=== PATIENT | male | born 1980 | race Caucasian/White ===

== ENCOUNTER 2017-04-24 13:14 | Emergency (ER) | payer OTHER ==
[2017-04-24] MEDS ORDERED: ACETAMINOPHEN TAB 325 MG TAB PO STA (13:50)
[2017-04-24] MEDS ORDERED: ONDANSETRON ODT 4 MG TAB PO STA (13:50)
--- NOTE | 2017-04-24 13:53 | ED ---
Head Injury HPI - General Chief complaint: Head Injury Stated complaint: [facility] head injury Time Seen by Provider: 04/24/17 13:38 Source: patient, RN notes reviewed Mode of arrival: ambulatory Limitations: no limitations - History of Present Illness Initial comments: Patient is a 36-year-old male presents to the emergency room for evaluation of head injury. Patient states about an hour ago he was at work and a piece of ceiling plaster fell on top of his head. Patient denies loss of consciousness. Patient does state he is having a 7 out of 10 headache with neck pain. Patient states he began to feel dizzy and nauseous. Patient states he has a history of severe concussion and thought he should be evaluated. Patient denies paresthesias. Patient denies changes in vision. Patient denies ear pain or ringing in the ears. Patient denies any other injuries during incident. Patient denies taking any blood thinners. Place: work - Related Data Home Medications Medication Instructions Recorded Confirmed Albuterol Sulfate [Proventil Hfa] 2 puff INHALATION RT-Q6H PRN 06/17/16 04/24/17 Ibuprofen [Motrin] 800 mg PO Q6HR PRN 06/17/16 04/24/17 Fluticasone Propionate [Flovent 1 puff INHALATION RT-DAILY PRN 04/24/17 04/24/17 Hfa] Meloxicam [Mobic] 7.5 mg PO DAILY PRN 04/24/17 04/24/17 Omeprazole [PriLOSEC] 40 mg PO HS 04/24/17 04/24/17 Allergies/Adverse reactions: Allergies Allergy/AdvReac Type Severity Reaction Status Date / Time No Known Allergies Allergy Verified 04/24/17 14:20 Review of Systems ROS Statement: Those systems with pertinent positive or pertinent negative responses have been documented in the HPI. ROS Other: All systems not noted in ROS Statement are negative. Past Medical History Past Medical History: No Reported History Additional Past Medical History / Comment(s): head injury History of Any Multi-Drug Resistant Organisms: None Reported Past Surgical History: No Surgical Hx Reported Past Psychological History: Anxiety, Depression Smoking Status: Former smoker Past Alcohol Use History: Occasional Past Drug Use History: Marijuana General Exam - General Exam Comments Initial Comments: Sitting on wheelchair, no acute distress. Limitations: no limitations General appearance: alert, in no apparent distress Head exam: Present: normocephalic, other (Small abrasion over top of scalp) Eye exam: Present: normal appearance, PERRL, EOMI Pupils: Present: normal accommodation ENT exam: Present: normal exam, mucous membranes moist, TM's normal bilaterally , normal external ear exam Neck exam: Present: normal inspection, full ROM. Absent: tenderness, lymphadenopathy Respiratory exam: Present: normal lung sounds bilaterally. Absent: respiratory distress Cardiovascular Exam: Present: regular rate, normal rhythm, normal heart sounds Extremities exam: Present: normal inspection Back exam: Present: normal inspection Neurological exam: Present: alert, oriented X3, CN II-XII intact, normal gait Expanded Patient oriented to: Present: person, place, time Speech: Present: fluid speech Cranial nerves: EOM's Intact: Normal, Facial Sensation: Normal Sensory exam: Upper Extremity Light Touch: Normal, Lower Extremity Light Touch: Normal Motor strength exam: RUE: 5, LUE: 5, RLE: 5, LLE: 5 Eye Response: (4) open spontaneously Motor Response: (6) obeys commands Verbal Response: (5) oriented Psychiatric exam: Present: normal affect, normal mood Skin exam: Present: warm, dry, intact, normal color. Absent: rash Course Vital Signs 04/24/17 13:24 Temperature 98.3 F Pulse Rate 57 L Respiratory 15 Rate Blood Pressure 143/92 O2 Sat by Pulse 98 Oximetry Medical Decision Making - Medical Decision Making Patient is a 36-year-old male presents to the emergency room for head injury. Bring/C-spine CT shows no acute intracranial hemorrhages or spine abnormalities. There was an incidental 8 mm thyroid nodule noted. Results discussed with patient. Patient states that he is aware of the thyroid nodule and is following up with his PCP. Patient states he understands everything that was discussed with him. Return parameters discussed. - Radiology Data Radiology results: report reviewed, image reviewed Disposition Clinical Impression: Closed head injury Disposition: HOME SELF-CARE Condition: Good Instructions: Head Injury (ED) Additional Instructions: Take Tylenol or ibuprofen as needed for headache. Please follow up with primary care provider in 1-2 days. If any new symptom arises or symptoms worsen, return to ER as soon as possible. Referrals: Wesley James DO [Primary Care Provider] - 1-2 days Time of Disposition: 15:19
--- NOTE | 2017-04-24 15:14 | CT ---
EXAMINATION TYPE: CT brain cspine wo con DATE OF EXAM: 04/24/2017 COMPARISON: CT brain and cervical spine June 17, 2016 HISTORY: Patient complains of headache, nausea, dizziness, and neck pain after ceiling fell in on his head. CT DLP: 1765 mGycm. Automated Exposure Control for Dose Reduction was Utilized. TECHNIQUE: CT scan of the head and cervical spine are performed without contrast. FINDINGS: There is no acute intracranial hemorrhage, mass effect, or midline shift identified. The ventricles and sulci are within normal limits in size. The globes are intact and the visualized sin uses are clear. The calvarium is intact. Gordillo-white matter differentiation is maintained. Cervical spine is visualized in its entirety from C1 through upper thoracic levels and demonstrates s atisfactory alignment without evidence of acute fracture or dislocation. Prevertebral soft tissue ap pears within normal limits. The C1-C2 articulation is within normal limits on the coronal images. Vertebral body heights and disc space heights are maintained. No large posterior disc herniations are present on axial or sagittal images. There is partial visualization of vesicles lobe/fissure. There is redemonstration of heterogeneous hypodense 8 mm nodule mid to lower pole level right thyroid on ax ial image 87. IMPRESSION: 1. There is no acute fracture or dislocation evident in the cervical spine. Advise nonemergent thyroi d ultrasound follow-up. 2. No acute intracranial hemorrhage, mass effect, or midline shift is seen.
[2017-04-24 15:35] VITALS: BP 132/82; PULSE 59; RESP 18; TEMP 98
== END 2017-04-24 15:30 | disposition home or self-care (01) ==
LOC: EC 13:14
DX: S09.90XA Unspecified injury of head, initial encounter (principal); R51 Headache; M54.2 Cervicalgia; Z87.891 Personal history of nicotine dependence; Z79.899 Other long term (current) drug therapy; W20.8XXA Other cause of strike by thrown, projected or falling object, initial encounter; Y92.69 Other specified industrial and construction area as the place of occurrence of the external cause; Y99.0 Civilian activity done for income or pay
CPT/HCPCS: 70450; 72125; 99283

== ENCOUNTER 2022-06-16 12:21 | Day surgery (SDC) | payer OTHER ==
[2022-06-14 09:23] VITALS: BMI 24.5
[~2022-06-16 12:21] MED LIST: SODIUM CHLORIDE 0.9% 1,000 ML IV SCH
[2022-06-16] MEDS ORDERED: SODIUM CHLORIDE 0.9% 500 ML 500 ML IV ONE (12:56)
[2022-06-16 13:01] VITALS: RESP 16
--- NOTE | 2022-06-16 15:02 | P.EPPROC ---
- EP Procedure Note Electrophysiology Procedure Note: Diagnosis Recurrent presyncope and syncope Twelve-lead EKG Sinus mechanism normal OK narrow QRS Tilt table test for protocol Baseline blood pressure 126/80 mmHg Baseline heart rate 65 beats a minute Patient was tilted upright at an angle of 70 per protocol No change in heart rate and blood pressure He was laid supine at the end of the procedure Impression Normal twelve-lead EKG Normal heart rate and blood pressure response to upright tilting
[2022-06-16 15:07] VITALS: BP 122/72; PULSE 58
== END 2022-06-16 15:07 | disposition home or self-care (01) ==
LOC: CATHEP 12:21
PROVIDERS: ATTEND Internal Medicine Clinical Cardiac Electrophysiology
DX: R55 Syncope and collapse (principal); Z20.822 Contact with and (suspected) exposure to COVID-19
CPT/HCPCS: 87635; 93660

== ENCOUNTER → 2023-03-23 | Outpatient (CLI) | payer OTHER ==
[2023-03-23 21:08] LABS: Basophils # (A) 0.15 X 10*3/uL (0.00-0.10); Basophils % (A) 2.1 %; Eosinophils # (A) 0.11 X 10*3/uL (0.04-0.35); Eosinophils % (A) 1.6 %; HCT 47.5 % (39.6-50.0); HGB 15.9 g/dL (13.0-17.0); Immature Grans, Automated 0.4 %; Lymphocytes # (A) 1.85 X 10*3/uL (0.90-5.00); Lymphocytes % (A) 26.3 %; MCH 31.7 pg (27.0-32.0); MCHC 33.5 g/dL (32.0-37.0); MCV 94.6 fL (80.0-97.0); Mean Platelet Volume 10.6 fL (9.5-12.2); Monocytes # (A) 0.48 X 10*3/uL (0.20-1.00); Monocytes % (A) 6.8 %; NRBC Per 100 WBC 0 /100 WBCS (0.0-0.0); Neutrophils # (A) 4.42 X 10*3/uL (1.80-7.70); Neutrophils % (A) 62.8 %; Platelet Count 208 X 10*3/uL (140-440); RBC 5.02 X 10*6/uL (4.40-5.60); RDW 11.5 % (11.5-14.5); WBC 7.04 X 10*3/uL (4.50-10.00)
== END | disposition home or self-care (01) ==
LOC: LABPAT 13:45
PROVIDERS: ATTEND Surgery
DX: Z01.818 Encounter for other preprocedural examination (principal)
CPT/HCPCS: 85025; 86850; 86900; 86901

== ENCOUNTER 2023-03-28 09:05 | Day surgery (SDC) | payer OTHER ==
[2023-03-24 09:46] VITALS: BMI 26.1
[~2023-03-28 09:05] MED LIST changes: +ACETAMINOPHEN TAB 500 MG TAB PO PRN; +DEXAMETHASONE SOD PHOSPHATE 4 MG/ML 1 ML VIAL IV ONE; +HEPARIN SODIUM,PORCINE/PF 5,000 UNIT/0.5 ML SYRINGE SQ PRN; +HYDROmorphone 0.5 MG/0.5 ML SYRINGE IVP PRN; +LACTATED RINGERS 1,000 ML IV SCH; +LIDOCAINE 1% (10MG/ML) FOR IV START INTRADERMA PRN; +MIDAZOLAM 2 MG/2 ML VIAL IV PRN; +ONDANSETRON 4 MG/2 ML VIAL IVP ONE; -SODIUM CHLORIDE 0.9% 1,000 ML IV SCH
[2023-03-28] MEDS ORDERED: LACTATED RINGERS 1,000 ML IV ONE ×2 (09:57→14:34)
[2023-03-28] MEDS ORDERED: fentaNYL (PF) 50 MCG/ML 2 ML AMP IVP ONE ×2 (11:07→15:51)
[2023-03-28] MEDS ORDERED: MIDAZOLAM 2 MG/2 ML VIAL IVP ONE (11:07)
[2023-03-28] MEDS ORDERED: PROPOFOL 10 MG/ML 20 ML VIAL IV ONE (11:57)
[2023-03-28] MEDS ORDERED: HYDROmorphone (PF) 1 MG/ML ONE (11:57)
[2023-03-28] MEDS ORDERED: ROCURONIUM 10 MG/ML (5 ML VIAL) IV ONE (11:57)
[2023-03-28] MEDS ORDERED: MIDAZOLAM 2 MG/2 ML VIAL ONE (11:57)
[2023-03-28] MEDS ORDERED: fentaNYL (PF) 50 MCG/ML 2 ML AMP ONE ×2 (11:57→15:50)
[2023-03-28] MEDS ORDERED: SODIUM CHLORIDE 0.9% (PF) 10 ML VIAL ONE (11:57)
[2023-03-28] MEDS ORDERED: ROPIVACAINE 5 MG/ML 30 ML VIAL ONE (11:57)
[2023-03-28] MEDS ORDERED: KETAMINE 10 MG/ML 20 ML VIAL ONE (11:57)
[2023-03-28] MEDS ORDERED: NEOSTIGMINE 1 MG/ML 10 ML VIAL ONE (11:57)
[2023-03-28] MEDS ORDERED: GLYCOPYRROLATE 0.2 MG/ML 2 ML VIAL ONE (11:57)
[2023-03-28] MEDS ORDERED: KETOROLAC 15 MG/ML 1 ML VIAL ONE (11:57)
[2023-03-28] MEDS ORDERED: BUPIVACAINE (PF) 0.25% 30 ML VIAL SQ ONE ×2 (12:01→12:22)
--- NOTE | 2023-03-28 12:59 | P.OP ---
Date of Procedure: 03/28/23 Preoperative Diagnosis: Bilateral inguinal hernia Postoperative Diagnosis: Bilateral inguinal hernia Procedure(s) Performed: Laparoscopic robotic Bilateral inguinal hernia Excision of left cord lipoma Transverse is a transplant block Anesthesia: MARY Surgeon: Akin Smiley Estimated Blood Loss (ml): 5 Pathology: other (Left coronary lipoma) Condition: stable Disposition: PACU Description of Procedure: The patient's placed on the operating table in the supine position. The patient received general anesthesia. The patient's abdomen was prepped and draped in usual sterile fashion. The skin was anesthetized 1% local Xylocaine at the incision sites. Using an 11 blade a skin incision was made at the umbilicus. The fascia was grasped with a Nitin and then the peritoneal cavity was entered with the Veress needle. Position of the Veress needle was confirmed with a positive drop test. After adequate insufflation a 5 mm trocar was placed into the peritoneal cavity. A four-quadrant transverse abdominis plane block was performed using 1% local Xylocaine. The Laparoscope was placed the peritoneal cavity. And a robotic 8 mm trocar was placed in the right lateral position and then another 8 mm robotic trochars placed in the left lateral position. The original 5 mm trocar was exchanged for a 12 mm trocar. The patient was placed in reverse Trendelenburg and then the patient was docked to the robot. Next the peritoneum over top of the right inguinal hernia was incised and then using blunt and sharp dissection and electrocautery the hernia sac was dissected free from the floor of the inguinal canal. The hernia sac was completely reduced into the peritoneal cavity. And then using the [employer] mesh the hernia was repaired. The peritoneum was then sutured with 20V lock suture. Next the peritoneum over top of the left inguinal hernia was incised and then using blunt and sharp dissection and electrocautery the hernia sac was dissected free from the floor of the inguinal canal. The left cord lipoma was dissected free so pathology. The hernia sac was completely reduced into the peritoneal cavity. And then using the [employer] paral[employer] mesh the hernia was repaired. The peritoneum was then sutured with 20V lock suture. The patient was then undocked the robot. The needle was withdrawn from the peritoneal cavity. The umbilical trocar site was closed with 0 Ethibond suture. The skin was closed interrupted 3-0 Monocryl suture. Dermabond dressing was applied. Patient was sent to recovery in stable condition.
[2023-03-28 13:04] VITALS: TEMP 96.8
[2023-03-28 13:18] VITALS: RESP 16
--- NOTE | 2023-03-28 13:27 | P.ANPRN ---
Procedure Note - Anesthesia - Nerve Block Performed Bilateral Erector Spinae Time Out Performed: Yes (:07) Date of Procedure: 03/28/23 Procedure Start Time: Procedure Stop Time: :14 Location of Patient: PreOp Indication: Acute Post-Operative Pain, Requested by Surgeon (Dr Smiley) Sedation Type: Sedate with meaningful contact maintained Preparation: Sterile Prep Position: Prone Catheter: None Needle Types: Pajunk Needle Gauge: 21 Ultrasound used to visualize needle placement: Yes Ultrasound used to observe medication spread: Yes Injectate: 0.5% Ropivacaine (see comment for volume) (15cc +10cc PF Normal saline each side) Blood Aspirated: No Pain Paresthesia on Injection Noted: No Resistance on Injection: Normal Image Stored and Saved: Yes Events: Uneventful and Well Tolerated
[2023-03-28] MEDS ORDERED: ONDANSETRON 4 MG/2 ML VIAL ONE (15:03)
[2023-03-28 16:17] VITALS: BP 131/86; PULSE 77
== END 2023-03-28 16:47 | disposition home or self-care (01) ==
LOC: OR 09:05
PROVIDERS: ATTEND Surgery
DX: K40.20 Bilateral inguinal hernia, without obstruction or gangrene, not specified as recurrent (principal); G89.18 Other acute postprocedural pain; D17.5 Benign lipomatous neoplasm of intra-abdominal organs; I10 Essential (primary) hypertension; F12.90 Cannabis use, unspecified, uncomplicated; E07.9 Disorder of thyroid, unspecified; Z79.890 Hormone replacement therapy; Z79.899 Other long term (current) drug therapy; Z91.041 Radiographic dye allergy status
CPT/HCPCS: 49650; S2900; 64999; 88304